=== PATIENT | male | born 1970 | race Caucasian/White ===

== ENCOUNTER 2019-12-02 20:38 | Emergency (ER) | payer MEDICAID ==
[~2019-12-02] VITALS: Ht 157.5 cm; Wt 76.2 kg
[2019-12-02] MEDS ORDERED: SEROQUEL50 MG PO (20:48)
[2019-12-02] MEDS ORDERED: EFFEXOR XR150 MG PO (20:49)
[2019-12-02] MEDS ORDERED: CYCLOBENZAPRINE5 MG PO (20:50)
--- OUTSIDE RECORDS SUMMARY | 2019-12-02 22:20 | XMS ---
PreManage Notification: KRZYSZTOF SANCHEZ Security Assurance Services Manager Health Care Events No recent Security Events currently on file CRITERIA MET - 6 ED Visits in 6 Months - [facility] - Has Care Guidelines - [facility] - 3 Facilities in 90 Days - PDMP - [facility] - 2 Visits in 30 Days CARE PROVIDERS DREW CROCKER [facility] Current PHONE: [phone] Guidelines Source: [employer] Mozes Guidelines Date: 09/26/2019 Care Recommendation: This is a [employer] client, if hospitalized for psychiatric reasons please contact [employer] [facility] @ [phone] Draw In Hand: RENEE, client is not currently engaged in counseling services. Primary Manager Integrity: Rui Mcdonough NP Allergies: Client has no reported allergies. Note: Client may be in the [place] area currently E.D. VISIT COUNT (12 MO[address] 3 [facility] 1 [facility] 4 [facility] [address] [facility] 3 [facility] 1 RANDI NunesNitish TOTAL 14 NOTE: Visits indicate total known visits. ED/UCC VISIT TRACKING (12 MO.) 12/02/2019 20:39 RANDI [place] HNitish [place] TYPE: Emergency COMPLAINT: - ABD PAIN 12/01/2019 19:04 Tanvi RODRIGUEZ TYPE: Emergency COMPLAINT: - SUICIDAL 12/01/2019 17:48 Ranjana RODRIGUEZ TYPE: Emergency COMPLAINT: - ABDOMINAL PAIN 12/01/2019 11:26 Ranjana RODRIGUEZ TYPE: Emergency COMPLAINT: - STOMACH PAIN 11/20/2019 18:55 [facility] TYPE: Emergency DIAGNOSES: - Suicidal - MHE,SI 11/12/2019 20:52 [facility] [place] TYPE: Emergency DIAGNOSES: - Alcohol dependence with withdrawal, unspecified 11/12/2019 03:13 [facility] TYPE: Emergency 11/11/2019 19:32 [facility] [place] TYPE: Emergency DIAGNOSES: - Otitis media, unspecified, unspecified ear 11/11/2019 15:34 [facility] [place] TYPE: Emergency 09/09/2019 18:14 [facility] TYPE: Emergency DIAGNOSES: - Suicidal - Suicidal ideations - Mental Health Crisis - Alcohol abuse, uncomplicated - "MHE; Medication Refill" - Other stimulant abuse, uncomplicated 09/05/2019 21:06 [facility] TYPE: Emergency DIAGNOSES: - Generalized abdominal pain - Abdominal Pain - "Abdominal Pain" 08/29/2019 03:07 [facility] DIAGNOSES: 0. SI 08/28/2019 22:49 [facility] [place]: Emergency DIAGNOSES: 0. SCHIZOPHRENIA AND PARANOIA 08/28/2019 19:14 [facility] [place] TYPE: Emergency DIAGNOSES: 0. MED CHECK INPATIENT VISIT TRACKING (12 MO.) 11/21/2019 17:34 [facility] [place] Sondra [facility] TYPE: Behavioral Health DIAGNOSES: - Schizoaffective 09/10/2019 03:02 [facility] ERICA D[facility]ON [facility] TYPE: Inpatient DIAGNOSES: - schizoaffective disorder 08/29/2019 09:45 [facility] TYPE: Psychiatry DIAGNOSES: 0. SI VOLUNTARY [id number]
== END 2019-12-02 23:01 | disposition home or self-care (01) ==
LOC: ED 20:38
DX: R10.9 Unspecified abdominal pain (principal); F17.200 Nicotine dependence, unspecified, uncomplicated; Z79.899 Other long term (current) drug therapy
CPT/HCPCS: 74177; 80053; 81001; 83690; 85025; 99284-25; Q9967

== ENCOUNTER 2019-12-07 08:14 | Emergency (ER) | payer MEDICAID ==
[~2019-12-07] VITALS: Ht 157.5 cm; Wt 76.2 kg
[~2019-12-07 08:14] MED LIST: CYCLOBENZAPRINE5 MG PO; EFFEXOR XR150 MG PO; SEROQUEL50 MG PO
--- OUTSIDE RECORDS SUMMARY | 2019-12-07 08:18 | XMS ---
PreManage Notification: KRZYSZTOF SANCHEZ Security Addiction Counselor Events No recent Security Events currently on file CRITERIA MET - 6 ED Visits in 6 Months - [facility] - Has Care Guidelines - [facility] - 3 Facilities in 90 Days - PDMP - [facility] - 2 Visits in 30 Days CARE PROVIDERS DREW CROCKER [facility] Current PHONE: [phone] Guidelines Source: [employer] Guidelines Date: 09/26/2019 Care Recommendation: This is a [employer] client, if hospitalized for psychiatric reasons please contact [employer] [facility] @ [phone] Parts Runner: RENEE, client is not currently engaged in counseling services. Primary Fork Lift Technician: Rui Mcdonough NP Allergies: Client has no reported allergies. Note: Client may be in the [place] area currently E.D. VISIT COUNT (12 MO.) 3 [facility] 1 [facility] 4 [facility] 2 [facility] [address] [facility] 2 [facility] H. TOTAL 15 NOTE: Visits indicate total known visits. 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 Suicidal ideations 1. Suicidal ideations 4. Stress, not elsewhere classified 5. Problem related to unspecified psychosocial circumstances 6. Unspecified abdominal pain 7. Fecal impaction 8. Other stimulant abuse, uncomplicated 9. 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 Nicotine dependence, unspecified, uncomplicated 11. Essential (primary) hypertension 12. Bipolar disorder, unspecified 12/01/2019 17:48 Ranjana RODRIGUEZ TYPE: Emergency COMPLAINT: - ABDOMINAL PAIN 12/01/2019 11:26 Ranjana RODRIGUEZ TYPE: Emergency COMPLAINT: - STOMACH PAIN 11/20/2019 18:55 [facility] TYPE: Emergency DIAGNOSES: - Suicidal - MHE,SI 11/12/2019 20:52 [facility] [place] TYPE: Emergency DIAGNOSES: - Alcohol dependence with withdrawal, unspecified 11/12/2019 03:13 [facility] [place] TYPE: Emergency 11/11/2019 19:32 [facility] [place] TYPE: Emergency DIAGNOSES: - Otitis media, unspecified, unspecified ear 11/11/2019 15:34 [facility] [place] TYPE: Emergency 09/09/2019 18:14 [facility] TYPE: Emergency DIAGNOSES: - Suicidal - Suicidal ideations - Mental Health Crisis - Alcohol abuse, uncomplicated - "MHE; Medication Refill" - Other stimulant abuse, uncomplicated 09/05/2019 21:06 [facility] OR [facility] TYPE: Emergency DIAGNOSES: - Generalized abdominal pain - Abdominal Pain - "Abdominal Pain" 08/29/2019 03:07 [facility] TYPE: Emergency DIAGNOSES: 0. SI 08/28/2019 22:49 [facility] TYPE: Emergency DIAGNOSES: 0. SCHIZOPHRENIA AND PARANOIA 08/28/2019 19:14 [facility] [place] TYPE: Emergency DIAGNOSES: 0. MED CHECK INPATIENT VISIT TRACKING (12 MO.) 11/21/2019 17:34 [facility] Sondra [facility] TYPE: Behavioral Health DIAGNOSES: - Schizoaffective 09/10/2019 03:02 [facility] [place] Sondra [facility] TYPE: Inpatient DIAGNOSES: - schizoaffective disorder 08/29/2019 09:45 Yousif Alden [facility] TYPE: Psychiatry DIAGNOSES: 0. SI VOLUNTARY [id number]
[2019-12-07] MEDS ORDERED: OLANZAPINE15 MG PO (08:23)
[2019-12-07] MEDS ORDERED: ONDANSETRON ODT8 MG PO (11:11)
== END 2019-12-07 11:26 | disposition home or self-care (01) ==
LOC: ED 08:14
DX: F10.10 Alcohol abuse, uncomplicated (principal); F31.9 Bipolar disorder, unspecified; F17.200 Nicotine dependence, unspecified, uncomplicated; Z79.899 Other long term (current) drug therapy; Y90.0 Blood alcohol level of less than 20 mg/100 ml
CPT/HCPCS: 80053; 81001; 83690; 83735; 85025; 96374; 96375; 99284-25; G0480; J2060; J2405; J3411; J7030

== ENCOUNTER 2019-12-07 22:30 | Emergency (ER) | payer MEDICAID ==
[~2019-12-07] VITALS: Ht 157.5 cm; Wt 76.2 kg
[~2019-12-07 22:30] MED LIST changes: +OLANZAPINE15 MG PO; +ONDANSETRON ODT8 MG PO
--- OUTSIDE RECORDS SUMMARY | 2019-12-07 22:34 | XMS ---
PreManage Notification: KRZYSZTOF SANCHEZ Security Computer Art Instructor Events No recent Security Events currently on file CRITERIA MET - 6 ED Visits in 6 Months - [facility] - Has Care Guidelines - [facility] - 3 Facilities in 90 Days - PDMP - [facility] - 2 Visits in 30 Days CARE PROVIDERS DREW CROCKER [facility] Current PHONE: [phone] Guidelines Source: [employer] Guidelines Date: 09/26/2019 Care Recommendation: This is a [employer] client, if hospitalized for psychiatric reasons please contact [employer] [facility] @ [phone] Sawing And Assembly Supervisor: RENEE, client is not currently engaged in counseling services. Primary Animal Caretaker Supervisor: Rui Mcdonough NP Allergies: Client has no reported allergies. Note: Client may be in the [place] area currently E.D. VISIT COUNT (12 MO.) 3 [facility] 1 [facility] 4 [facility] 2 [facility] 3 [facility] 3 RANDI Medeiros TOTAL 16 NOTE: Visits indicate total known visits. 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 Suicidal ideations 1. Suicidal ideations 4. Stress, not elsewhere classified 5. Problem related to unspecified psychosocial circumstances 6. Unspecified abdominal pain 7. Fecal impaction 8. Other stimulant abuse, uncomplicated 9. Other fdc (current) drug therapy 10. Nicotine dependence, unspecified, uncomplicated 11. Essential (primary) hypertension 12. Bipolar disorder, unspecified 12/01/2019 17:48 Ranjana RODRIGUEZ TYPE: Emergency COMPLAINT: - ABDOMINAL PAIN 12/01/2019 11:26 Ranjana RODRIGUEZ TYPE: Emergency COMPLAINT: - STOMACH PAIN 11/20/2019 18:55 [facility] OR [facility] TYPE: Emergency DIAGNOSES: - Suicidal - MHE,SI 11/12/2019 20:52 [facility] [place] TYPE: Emergency DIAGNOSES: - Alcohol dependence with withdrawal, unspecified 11/12/2019 03:13 [facility] [place] TYPE: Emergency 11/11/2019 19:32 [facility] [place] TYPE: Emergency DIAGNOSES: - Otitis media, unspecified, unspecified ear 11/11/2019 15:34 [facility] [place] TYPE: Emergency 09/09/2019 18:14 [facility] OR [facility] TYPE: Emergency DIAGNOSES: - Suicidal - Suicidal ideations - Mental Health Crisis - Alcohol abuse, uncomplicated - "MHE; Medication Refill" - Other stimulant abuse, uncomplicated 09/05/2019 21:06 [facility] TYPE: Emergency DIAGNOSES: - Generalized abdominal pain - Abdominal Pain - "Abdominal Pain" 08/29/2019 03:07 [facility] DIAGNOSES: 0. SI 08/28/2019 22:49 [facility] DIAGNOSES: 0. SCHIZOPHRENIA AND PARANOIA 08/28/2019 19:14 [facility] DIAGNOSES: 0. MED CHECK INPATIENT VISIT TRACKING (12 MO.) 11/21/2019 17:34 [facility] [place] Sondra [facility] TYPE: Behavioral Health DIAGNOSES: - Schizoaffective 09/10/2019 03:02 [facility] [place] Sondra [facility] TYPE: Inpatient DIAGNOSES: - schizoaffective disorder 08/29/2019 09:45 [facility] TYPE: Psychiatry DIAGNOSES: 0. SI VOLUNTARY [email or web address]
== END 2019-12-07 23:58 | disposition home or self-care (01) ==
LOC: ED 22:30
DX: S63.611A Unspecified sprain of left index finger, initial encounter (principal); F31.9 Bipolar disorder, unspecified; F17.200 Nicotine dependence, unspecified, uncomplicated; Z79.899 Other long term (current) drug therapy; W23.0XXA Caught, crushed, jammed, or pinched between moving objects, initial encounter
CPT/HCPCS: 73140; 99283-25